=== PATIENT | female | born 1955 | race Caucasian/White ===

== ENCOUNTER 2018-06-04 12:51 | Day surgery (SDC) | payer OTHER, SELFPAY ==
--- NOTE | 2018-06-04 | PATH_ITS ---
[facility] Accession Number: [id number] . 01 Material submitted: . colon - RECTAL/SIGMOID POLYP . 02 Diagnosis: Rectosigmoid Colon, Polyp, Biopsy: Tubular adenoma. [facility]/06/06/2018 . 02 Electronically signed: . Ave Haddad MD, Pathologist NPI- [id number] . 01 Gross description: . RECTAL/SIGMOID POLYP: Received in formalin is 1 fragment(s) of roman, soft tissue measuring 0.3 x 0.3 x 0.2 cm which is entirely submitted and submitted entirely in 1 cassette(s) /DMC /DMC . 02 Pathologist provided ICD-10: D12.7 . 02 CPT . 187322 Performed at: 01 [facility] [address] [id number] MD Aron Mata MD Phone: [phone] Performed at: 02 [facility] [address] [place], [place] [id number] MD Ave Haddad MD Phone: [phone]
[2018-06-04 13:54] VITALS: BMI 21.1
[2018-06-04 13:58] VITALS: BP 170/90; PULSE 53; RESP 12; TEMP 36.6; O2SAT 100
--- NOTE | 2018-06-04 14:06 | PM.HP.1 ---
History of Present Illness Date Patient Seen: 06/04/18 Chief complaint: [id number] Narrative: 63-year-old female here for colon polyp surveillance. Last colonoscopy performed approximately 2012. Prior report not available. Patient currently has no active GI issues Patient History Social History household members: none Family & Social History Social History: household members none Meds Home Medications Medication Instructions Recorded Confirmed Type lisinopril [Prinivil] 20 mg PO BID #0 01/25/11 06/04/18 History potassium chloride 10 meq PO DAILY #0 01/25/11 06/04/18 History carvedilol 3.125 mg PO BID 06/04/18 06/04/18 History chlorthalidone 25 mg PO DAILY 06/04/18 06/04/18 History sertraline 50 mg PO DAILY 06/04/18 06/04/18 History Allergies Allergy/AdvReac Type Severity Reaction Status Date / Time No Known Drug Allergies Allergy Verified 06/04/18 13:51 Exam Vital Signs (past 8 hours): - 06/04/18 13:58 Temperature 97.8 F Pulse Rate 53 L Respiratory Rate 12 Blood Pressure 170/90 H Pulse Oximetry 100 Oxygen Delivery Method Room Air Narrative Exam Narrative: General: Patient is well developed, not in apparent distress Cardiovascular: Regular rhythm, bradycardic, no murmurs, rubs, or gallops; no evidence of edema; no palpable abdominal aortic aneurysm Gastrointestinal: Normoactive bowel sounds, soft, nontender, nondistended, no rebound tenderness, no hepatosplenomegaly, no evidence of hernia Assessment & Plan Assessment & Plan narrative: 63-year-old female here for colon polyp surveillance. Regarding the procedure(s), the risks and potential complications, benefits, and alternatives (including not doing the procedure) were discussed with the patient. The risks include but are not limited to bleeding, splenic injury, infection, perforation which may require surgical intervention, missed lesions, and adverse reactions to sedative medicines. After a question and answer period, the patient agreed to proceed with the procedure(s) and gives informed consent.
[2018-06-04] MEDS: SODIUM CHLORIDE 0.9% 1,000 ML 70 ML IV (14:16)
[2018-06-04] MEDS: MIDAZOLAM 5 MG/5 ML VIAL IV ×2 (14:37→14:41)
[2018-06-04] MEDS: fentaNYL 250 MCG/5 ML INJ IV (14:37)
[2018-06-04 14:55] VITALS: BP 113/74; PULSE 57; RESP 16; TEMP 36.9; O2SAT 97
--- NOTE | 2018-06-04 14:55 | PM.OP.ENDO ---
Operative Date/Time/Diagnoses Date of procedure: 06/04/18 Procedure Notes Procedure in detail: Surgeon: Sebas Candelario MD Procedure: Colonoscopy with polypectomy Preoperative diagnosis: Colon polyp surveillance Postoperative diagnosis: Rectosigmoid polyp status post polypectomy, grade 1 internal hemorrhoids Medications: Conscious sedation using 6 mg IV of Midazolam and 200 mcg IV of Fentanyl Preanesthesia Assessment An H and P was performed/updated and the Px?s ASA class is 2. The procedure was discussed in detail with the patient. The potential risks and complications including infection, bleeding, missed lesions, perforation, need for surgery in case of perforation, prolonged hospital stay, and were explained. A brief question and answer period was allotted and once all questions were answered, informed consent was obtained. The patient was brought back to the procedure room and placed on standard monitoring. The patient?s vital signs were monitored continuously throughout the entire procedure. Prior to starting, a timeout was performed to confirm the patient?s identity, allergies, medications, and procedure. Procedure in detail The patient was placed in left lateral decubitus position and once adequate sedation was obtained a CAROLINA was performed. The digital rectal examination did not reveal any palpable lesions. The tip of the colonoscope was placed in the anal canal and advanced without difficulty all the way to the cecum which was identified by the appendiceal orifice and the ileocecal valve. The left colon was noted to be very tortuous. Careful examination of all sinclair of the colon was performed with irrigation of any residual stool. In the rectosigmoid colon, there was a 3 mm sessile polyp which was removed by means of cold Jumbo forceps. Resection and retrieval were complete with minimal bleeding. Retroflexion was performed in the rectum which revealed grade 1 internal hemorrhoids The patient tolerated the procedure well and will be brought back to the recovery area to be discharged once criteria are met. The prep was judged to be good and adequate to identify polyps less than 5 mm. The withdrawal time was 8 minutes. The total physician intraservice time was 20 minutes. Complications There were no complications and estimated blood loss was minimal. Recommendations: Resume previous diet Continue outPx medications Follow up pathology results Repeat colonoscopy in 5 years If you have any trouble with your hemorrhoids, feel free to call our office to make an appointment so you can be evaluated to see if you would be a good candidate for hemorrhoid banding An emergency contact number was given to the patient for any complications related to the procedure
[2018-06-04 15:00] VITALS: BP 110/69; PULSE 69; RESP 17; O2SAT 96
--- NOTE | 2018-06-04 15:00 | PM.DS.1 ---
History of Present Illness Chief complaint: [id number] Narrative: 63-year-old female here for colon polyp surveillance. Last colonoscopy performed approximately 2012. Prior report not available. Patient currently has no active GI issues Discharge Providers Discharge Date: 06/04/18 Primary care physician: Linden Billy MD Discharge provider: Sebas Candelario MD Exam Vital Signs (past 8 hours): - 06/04/18 13:58 06/04/18 14:55 Temperature 97.8 F 98.4 F Pulse Rate 53 L 57 L Respiratory Rate 12 16 Blood Pressure 170/90 H 113/74 Pulse Oximetry 100 97 Oxygen Delivery Method Room Air Narrative Exam Narrative: General: Patient is well developed, not in apparent distress Cardiovascular: Regular rhythm, bradycardic, no murmurs, rubs, or gallops; no evidence of edema; no palpable abdominal aortic aneurysm Gastrointestinal: Normoactive bowel sounds, soft, nontender, nondistended, no rebound tenderness, no hepatosplenomegaly, no evidence of hernia Discharge Plan Discharge Plan Patient Disposition: Home Discharge Med Rec/Prescriptions Prescriptions: Continued lisinopril [Prinivil] 20 MG tablet 20 mg PO BID Qty: 0 RF: 0 potassium chloride 10 mEq Tablet Extended Release 10 meq PO DAILY Qty: 0 RF: 0 chlorthalidone 25 mg Tablet 25 mg PO DAILY RF: 0 carvedilol 3.125 mg Tablet 3.125 mg PO BID RF: 0 sertraline 50 mg Tablet 50 mg PO DAILY RF: 0 Follow up/Referrals: Linden Billy MD [Primary Care Provider] - Discharge Orders: Discharge (Order); Ordered 06/04/18 Ordered By: Sebas Candelario Provider Discharge Instructions Diet: Diet as Tolerated Visit Report/Discharge Packet Stand Alone Forms: Colonoscopy Result: Med [facility] Discharge Data Primary Care Provider: Linden Billy V Attending Provider: Sebas Candelario
[2018-06-04 15:32] VITALS: BP 140/70; PULSE 53; RESP 16; TEMP 37
== END 2018-06-04 15:47 | disposition home or self-care (01) ==
PROVIDERS: PCP Internal Medicine; Visit Provider Internal Medicine Gastroenterology
PROC: 0DJD8ZZ Inspection of Lower Intestinal Tract, Via Natural or Artificial Opening Endoscopic (ICD-10-PCS; CPT 45378; principal; 2018-06-04 14:30)
DX: Z86.010 Personal history of colon polyps (principal); K64.0 First degree hemorrhoids; D12.7 Benign neoplasm of rectosigmoid junction
CPT/HCPCS: 45380; J2250; J3010

== ENCOUNTER → 2019-09-24 11:34 | Outpatient (CLI) | payer MEDICARE, OTHER, SELFPAY ==
--- NOTE | 2019-09-24 | DI.MG.S_ITS ---
BILATERAL DIGITAL SCREENING MAMMOGRAM 3D/2D WITH CAD: 09/24/2019 CLINICAL: Routine screening. Comparison is made to exams dated: 02/02/2017 mammogram, 05/13/2014 mammogram, and 12/08/2012 mammogram - [facility]. There are scattered fibroglandular elements in both breasts. Current study was also evaluated with a Computer Aided Detection (CAD) system. No significant masses, calcifications, or other findings are seen in either breast. There has been no significant interval change. IMPRESSION: NEGATIVE There is no mammographic evidence of malignancy. A 1 year screening mammogram is recommended. This exam was interpreted at Station ID: [id number]. NOTE: For mammograms, a report in lay terms will be sent to the patient. Approximately 15% of breast malignancies will not be visualized mammographically. In the management of a palpable breast mass, a negative mammogram must not discourage biopsy of a clinically suspicious lesion. Electronically Signed By: Pop Esparza M.D., jr/dianne:09/24/2019 13:18:00 letter sent: Normal Exam ACR BI-RADS Category 1: Negative 3341F
[2019-09-24 13:41] LABS: Aspartate Aminotransferase 26 IU/L (14-36); Blood Urea Nitrogen 19 mg/dL (7-17); Calcium 9.7 mg/dL (8.4-10.2); Carbon Dioxide 28 mmol/L (22-32); Chloride 97 mmol/L (98-107); Cholesterol 254 mg/dL (140-199); Estimated Glomerular Filt Rate 55.6 mL/min (>60); Glucose 84 mg/dL (80-110); HDL Cholesterol 68 mg/dL (40-60); HEMOLYSIS < 15 (0-50); LDL Cholesterol Calculated 153 mg/dL (<100); Sodium 133 mmol/L (137-145); Triglycerides 164 mg/dL (35-150)
== END ==
PROVIDERS: PCP Internal Medicine; Referring Provider Internal Medicine; Visit Provider Internal Medicine
DX: Z12.31 Encounter for screening mammogram for malignant neoplasm of breast (principal); I10 Essential (primary) hypertension; E78.2 Mixed hyperlipidemia
CPT/HCPCS: 36415; 77063; 77067; 80048; 80061; 84450

== ENCOUNTER 2020-07-01 00:28 | Emergency (ER) | payer MEDICARE, OTHER, SELFPAY ==
[2020-07-01] VITALS (10 sets, daily range): BP systolic 130–206; BP diastolic 73–102; PULSE 52–60; RESP 18; TEMP 37; O2SAT 95–98; BMI 22.6
--- NOTE | 2020-07-01 00:33 | DI.CT.S_ITS ---
PROCEDURE: CT KIDNEY URETER BLADDER (KUB) INDICATIONS: left flank pain TECHNIQUE: Noncontrast 5 mm thick sections acquired from the diaphragms to the symphysis. 5 mm thick coronal and sagittal reformats were then performed. For radiation dose reduction, the following was used: automated exposure control, adjustment of mA and/or kV according to patient size. COMPARISON: None. FINDINGS: Image quality: Excellent. Lung bases: Mild bibasilar atelectasis. Heart size is normal. There is a small hiatal hernia. Urinary system: Both kidneys are normal in size. No kidney stones. No hydronephrosis or perinephric fat stranding. Both ureters appear non-dilated throughout their expected courses. Bladder wall thickness is normal; no calcified bladder stones. Other solid organs: Liver is normal in size. Gallbladder is normal. Pancreas is normal in contours. Spleen is normal in size. No adrenal nodules. Mild adrenal thickening. Peritoneum and bowel: Unenhanced bowel loops demonstrate normal wall thickness and caliber. Normal appendix. There is a moderate amount of stool in colon. No free fluid or air. Nodes and vessels: No retroperitoneal or mesenteric adenopathy by size criteria. Aorta and inferior vena cava are normal in caliber. Abdominal wall: No ventral hernias. Pelvis: Uterus is normal. Ovaries are not well seen. No free pelvic fluid. No inguinal hernias or adenopathy. Bones: No suspicious bony lesions. No vertebral body compression fractures. Degenerative changes in the lower lumbar spine. IMPRESSION: 1. No renal stone or hydronephrosis. No significant discrepancy with the hotel night auditor radiology preliminary report. Dictated by: Morgan Schaffer M.D. on 07/01/2020 at 8:10 Approved by: Morgan Schaffer M.D. on 07/01/2020 at 8:14
--- NOTE | 2020-07-01 00:35 | ED_ITS ---
HPI - General Adult General Chief complaint: Back Pain/Injury Stated complaint: Lower Back Pain Time Seen by Provider: 07/01/20 00:32 History of Present Illness HPI narrative: 65-year-old woman with a history of high blood pressure presents via medics with severe left flank pain. She notes that her symptoms started today they have been waxing and waning ranging from a dull continuous ache to severe sharp pain associated with nausea and diaphoresis. She describes no dysuria and no hematuria but does note passing some sand/grainy material in her urine earlier today. No constipation or fevers. No chest pain, palpitations, dyspnea. No lower extremity edema. No recent trauma and no history of similar findings Related Data Home Medications Medication Instructions Recorded Confirmed lisinopril [Prinivil] 20 mg PO BID #0 01/25/11 06/04/18 potassium chloride 10 meq PO DAILY #0 01/25/11 06/04/18 carvedilol 3.125 mg PO BID 06/04/18 06/04/18 chlorthalidone 25 mg PO DAILY 06/04/18 06/04/18 sertraline 50 mg PO DAILY 06/04/18 06/04/18 Allergies Allergy/AdvReac Type Severity Reaction Status Date / Time No Known Drug Allergies Allergy Verified 06/04/18 13:51 Review of Systems Review of Systems Narrative: Remainder of complete review of systems is otherwise unremarkable except for that included in the HPI. Patient History Medical History Hypertension Social History household members: none Smoking Status: Never smoker Exam Narrative Exam Narrative: General: Healthy appearing, in moderate distress. Able to give a complete and coherent history. Well-nourished well-developed HEENT: Moist mucous membranes, normal sclera with reactive pupils, Respiratory: Lungs are clear to auscultation, no wheezing no rales no rhonchi. Full and symmetrical air movement Cardiac: Regular rate and rhythm no murmurs no bruits Abdomen: Soft, nontender, good bowel tones, left flank pain Skin: Warm and dry, no rashes Neurologic: Grossly neurologically intact with no obvious asymmetries or abnormalities Extremities: No trauma, well perfused Psych: Cooperative, appropriate insight and affect Initial Vital Signs Initial Vital Signs: Vital Signs Temperature 98.6 F 07/01/20 00:35 Pulse Rate 60 07/01/20 00:35 Respiratory Rate 18 07/01/20 00:35 Blood Pressure 206/102 H 07/01/20 00:35 Pulse Oximetry 98 07/01/20 00:35 Course Orders Ordered: ED Orders 07/01/20 00:33 CT kidney ureter bladder (KUB) Stat 07/01/20 00:50 Complete Blood Count AUTO DIFF Stat Comprehensive Metabolic Panel Stat Hydromorphone HCl (Hydromorphone 0.5 Mg Inj) 0.5 mg IV Q15MIN PRN PRN Reason: Pain, Last Admin: 07/01/20 00:44 Dose: 0.5 mg Documented by: SHARRI Discontinued Medications Sodium Chloride (Normal Saline 0.9%) 1,000 mls @ 1,000 mls/hr IV BOLUS ONE Stop: 07/01/20 01:31 Last Infusion: 07/01/20 02:39 Dose: 0 mls/hr Documented by: Admin: 07/01/20 00:45 Dose: 1,000 mls/hr Documented by: SHARRI Ketorolac Tromethamine (Ketorolac 30 Mg/Ml Vial) 15 mg IV NOW ONE Stop: 07/01/20 00:33 Last Admin: 07/01/20 00:44 Dose: 15 mg Documented by: SHARRI Ondansetron HCl (Ondansetron 4 Mg/2 Ml Inj) 4 mg IV NOW ONE Stop: 07/01/20 00:33 Last Admin: 07/01/20 00:45 Dose: 4 mg Documented by: SHARRI Oxycodone/Acetaminophen (Oxycodone/Acetaminophen 5/325 Tablet) 1 tab PO NOW ONE Stop: 07/01/20 02:49 Oxycodone/Acetaminophen (Oxycodone/Apap 5/325 Prepack) 1 bottle MISC SEEINSTR ONE Stop: 07/01/20 02:49 Potassium Chloride (Potassium Chloride 20 Meq Tab) 20 meq PO NOW ONE Stop: 07/01/20 01:38 Last Admin: 07/01/20 01:44 Dose: 20 meq Documented by: SHARRI Vital Signs Vital signs: Vital Signs - 8 hr 07/01/20 00:35 07/01/20 00:59 07/01/20 01:00 Temperature 98.6 F Pulse Rate 60 52 L 52 L Respiratory Rate 18 Blood Pressure 206/102 H 158/82 H Pulse Oximetry 98 98 97 07/01/20 01:30 07/01/20 01:31 07/01/20 01:45 Temperature Pulse Rate 54 L 54 L 59 L Respiratory Rate Blood Pressure 130/73 Pulse Oximetry 95 96 98 07/01/20 02:02 Temperature Pulse Rate Respiratory Rate Blood Pressure 137/80 Pulse Oximetry Medical Decision Making Medical Records Medical records reviewed: Yes I reviewed the patient's medical records. Lab Data Lab results reviewed: Yes I reviewed the patient's lab results. Result diagrams: 07/01/20 00:50 07/01/20 00:50 Labs: Lab Results 07/01/20 07/01/20 Range/Units 00:50 00:50 WBC 10.8 (4.5-11.0) X10^3/uL RBC 4.38 (4.0-5.2) X10^6/uL Hgb 14.0 (12.0-16.0) g/dL Hct 40.6 (36-46) % MCV 92.8 (80-100) fL MCH 32.0 (26-34) PG MCHC 34.4 (30-36) % RDW 13.2 (11.6-14.8) % Plt Count 328 (150-400) X10^3/uL Neut % (Auto) 67.5 (50-75) % Lymph % (Auto) 21.2 L (25-40) % [place] % (Auto) 9.8 (3-14) % Eos % (Auto) 1.0 L (2-4) % Baso % (Auto) 0.5 (0-2) % Neut # (Auto) 7300 H (2740-3078) /uL Lymph # (Auto) 2300 (7719-3192) /uL [place] # (Auto) 1100 H (0-900) /uL Eos # (Auto) 100 (0-450) /uL Baso # (Auto) 100 (0-100) /uL Sodium 136 L (137-145) mmol/L Potassium 3.3 L (3.4-5.1) mmol/L Chloride 98 (98-107) mmol/L Carbon Dioxide 29 (22-32) mmol/L BUN 29 H (7-17) mg/dL Creatinine 1.06 H (0.52-1.04) mg/dL Estimated GFR 51.9 L (>60) mL/min BUN/Creatinine Ratio 27.4 H (6-22) Glucose 102 (80-110) mg/dL Calcium 9.2 (8.4-10.2) mg/dL Total Bilirubin 0.4 (0.2-1.3) mg/dL AST 29 (14-36) IU/L ALT 17 (<35) IU/L Alkaline Phosphatase 50 (38-126) U/L Total Protein 7.3 (6.3-8.2) g/dL Albumin 4.3 (3.5-5.0) g/dL Globulin 3.0 (1.7-4.1) g/dL Albumin/Globulin Ratio 1.4 (1.0-2.8) Urine Dip Bedside Urine Glucose Negative Bedside Urine Bilirubin - Negative Bedside Urine Ketone +/- 5 Urine Specific [place] 1.025 Bedside Urine Occult Blood +/- Bedside Urine Protein - Negative Bedside Urine Urobilinogen - Negative Bedside Urine Nitrite - Negative Bedside Urine Leukocytes - Negative Esterase Point of care testing: Urine Dip Bedside Urine Glucose Negative Bedside Urine Bilirubin - Negative Bedside Urine Ketone +/- 5 Urine Specific [place] 1.025 Bedside Urine Occult Blood +/- Bedside Urine Protein - Negative Bedside Urine Urobilinogen - Negative Bedside Urine Nitrite - Negative Bedside Urine Leukocytes - Negative Esterase Imaging Data CT scan - abdomen/pelvis: Radiologist's Impression: No definite ureteral stones or hydronephrosis, normal appendix, no bowel obstruction no compression fracture no diverticulitis Dr Betito MD [facility] Narrative Medical decision making narrative: 65-year-old woman presents with fairly classic history for renal colic and passing Mirna debris in her urine earlier today. CT scan does not show obvious stone, hydronephrosis, intra-abdominal abscess or infection, no bowel obstruction and no other explanation for the classic rather colicky pain she is experiencing. Her pain was controlled with Toradol and Dilaudid initially and can continued to be tolerable with oral Percocet. Despite the negative CT findings with the history and the description of the seen the debris in her urine of most likely explanation remains renal colic. She is safe for home discharge Discharge Plan Departure Patient Disposition: Home Clinical Impression: Hypokalemia, Renal colic Instructions: Kidney Stones -- Adult Activity Restrictions/Additional Instructions: Thank you for coming in today With the colicky severe flank pain that your having, it looks and behaves absolutely like a kidney stone. With the sand like debris you noticed in your urine earlier strongly suspicious for renal colic. The CT scan did not show an obvious large kidney stone and it did not show evidence of appendicitis, diverticulitis, compression fractures or other diagnoses to explain symptoms your currently having. At this point it is okay to cover up the pain and presumed that this is renal colic. Using 400 mg of ibuprofen (2 pypw-nqa-vlwifsd pills) and 1 Tylenol every 6 hours can be very helpful in controlling pain. For severe pain using 2 ibuprofen and 1 Percocet can be helpful. Typically as your passing the sandlike debris will continue to have pain and will have a deep discomfort feeling but not this severe pain that your having today for another couple of days. Please do schedule follow-up appointment with her primary care physician to make sure that you are feeling 100% back to normal. If you develop fevers, hematuria or increasing difficulty or inability to go to the bathroom you do need to return to the emergency department for further evaluation Prescriptions: No Action lisinopril [Prinivil] 20 MG tablet 20 mg PO BID Qty: 0 RF: 0 potassium chloride 10 mEq Tablet Extended Release 10 meq PO DAILY Qty: 0 RF: 0 chlorthalidone 25 mg Tablet 25 mg PO DAILY RF: 0 carvedilol 3.125 mg Tablet 3.125 mg PO BID RF: 0 sertraline 50 mg Tablet 50 mg PO DAILY RF: 0 Referrals: Linden Billy MD [Primary Care Provider] -
[2020-07-01] MEDS: KETOROLAC 30 MG/ML VIAL 15 MG IV (00:44)
[2020-07-01] MEDS: HYDROMORPHONE 0.5 MG INJ IV (00:44)
[2020-07-01] MEDS: ONDANSETRON 4 MG/2 ML INJ IV (00:45)
[2020-07-01] MEDS: SODIUM CHLORIDE 0.9% 1,000 ML 1000 ML IV (00:45)
[2020-07-01 00:57] LABS: Add Manual Diff / Slide Review NO; Basophils Absolute Auto 100 /uL (0-100); Basophils Percent Auto 0.5 % (0-2); Eosinophils Absolute Auto 100 /uL (0-450); Hematocrit 40.6 % (36-46); Lymphocytes Absolute Auto 2300 /uL (1100-4500); Lymphocytes Percent Auto 21.2 % (25-40); Mean Corpuscular HGB Conc 34.4 % (30-36); Mean Corpuscular Volume 92.8 fL (80-100); Monocytes Absolute Auto 1100 /uL (0-900); Monocytes Percent Auto 9.8 % (3-14); Neutrophils Absolute Auto 7300 /uL (1500-7000); Neutrophils Percent Auto 67.5 % (50-75); Platelet Count 328 X10^3/uL (150-400); Red Blood Cell Count 4.38 X10^6/uL (4.0-5.2); Red Cell Distribution Width 13.2 % (11.6-14.8); White Blood Cell Count 10.8 X10^3/uL (4.5-11.0)
[2020-07-01 01:08] LABS: Alanine Aminotransferase 17 IU/L (<35); Albumin 4.3 g/dL (3.5-5.0); Albumin Globulin Ratio 1.4 (1.0-2.8); Alkaline Phosphatase 50 U/L (38-126); Aspartate Aminotransferase 29 IU/L (14-36); BUN Creatinine Ratio 27.4 (6-22); Bilirubin Total 0.4 mg/dL (0.2-1.3); Blood Urea Nitrogen 29 mg/dL (7-17); Calcium 9.2 mg/dL (8.4-10.2); Carbon Dioxide 29 mmol/L (22-32); Chloride 98 mmol/L (98-107); Estimated Glomerular Filt Rate 51.9 mL/min (>60); Glucose 102 mg/dL (80-110); HEMOLYSIS < 15 (0-50); Potassium 3.3 mmol/L (3.4-5.1); Sodium 136 mmol/L (137-145); Total Protein 7.3 g/dL (6.3-8.2)
[2020-07-01] MEDS: POTASSIUM CHLORIDE 20 MEQ TAB PO (01:44)
[2020-07-01] MEDS: OXYCODONE/APAP 5/325 PREPACK 1 BOTTLE MISC (03:14)
[2020-07-01] MEDS: OXYCODONE/ACETAMINOPHEN 5/325 TABLET 1 TAB PO (03:14)
--- NOTE | 2020-07-01 05:34 | PC.NURSE ---
She verbalized understanding of d/c instructions.Smiling and thankfull.Gait steady.
== END 2020-07-01 05:10 | disposition home or self-care (01) ==
PROVIDERS: Emergency Provider Emergency Medicine; PCP Internal Medicine
DX: E87.6 Hypokalemia (principal); N23 Unspecified renal colic; R11.0 Nausea
CPT/HCPCS: 36415; 74176; 80053; 81003; 85025; 96361; 96374; 96375; 99284; J1170; J1885; J2405

== ENCOUNTER → 2020-07-11 18:49 | Outpatient (ROUT) | payer MEDICARE, OTHER, SELFPAY ==
[2020-07-11 19:32] LABS: BUN Creatinine Ratio 20.8 (6-22); Blood Urea Nitrogen 20 mg/dL (7-17); Calcium 9.8 mg/dL (8.4-10.2); Carbon Dioxide 27 mmol/L (22-32); Chloride 99 mmol/L (98-107); Estimated Glomerular Filt Rate 58.1 mL/min (>60); Glucose 96 mg/dL (80-110); HEMOLYSIS < 15 (0-50); Potassium 4.3 mmol/L (3.4-5.1); Sodium 135 mmol/L (137-145)
== END ==
PROVIDERS: PCP Internal Medicine; Visit Provider Internal Medicine
DX: E87.6 Hypokalemia (principal)
CPT/HCPCS: 80048

== ENCOUNTER → 2021-10-02 09:43 | Outpatient (CLI) | payer MEDICARE, OTHER, SELFPAY ==
[2021-10-02 11:09] LABS: Hematocrit 40.2 % (36-46); Mean Corpuscular HGB Conc 34.9 % (30-36); Mean Corpuscular Hemoglobin 32.1 PG (26-34); Mean Corpuscular Volume 92.1 fL (80-100); Platelet Count 279 X10^3/uL (150-400); Red Blood Cell Count 4.36 X10^6/uL (4.0-5.2); Red Cell Distribution Width 13.4 % (11.6-14.8); White Blood Cell Count 8.2 X10^3/uL (4.5-11.0)
[2021-10-02 11:53] LABS: Alanine Aminotransferase 20 IU/L (<35); Albumin 4.4 g/dL (3.5-5.0); Albumin Globulin Ratio 1.3 (1.0-2.8); Alkaline Phosphatase 50 U/L (38-126); Aspartate Aminotransferase 31 IU/L (14-36); BUN Creatinine Ratio 18.2 (6-22); Bilirubin Total 0.5 mg/dL (0.2-1.3); Blood Urea Nitrogen 20 mg/dL (7-17); Calcium 9.4 mg/dL (8.4-10.2); Carbon Dioxide 30 mmol/L (22-32); Chloride 99 mmol/L (98-107); Cholesterol 157 mg/dL (140-199); Estimated Glomerular Filt Rate 55 mL/min (>60); Globulin 3.3 g/dL (1.7-4.1); Glucose 94 mg/dL (80-110); HDL Cholesterol 70 mg/dL (40-60); HEMOLYSIS < 15 (0-50); LDL Cholesterol Calculated 72 mg/dL (<100); Potassium 3.6 mmol/L (3.4-5.1); Sodium 136 mmol/L (137-145); Total Protein 7.7 g/dL (6.3-8.2); Triglycerides 76 mg/dL (35-150)
[2021-10-02 12:21] LABS: TSH w/ Reflex to FT4 2.36 uIU/mL (0.47-4.68)
[2021-10-02 12:37] LABS: Vitamin B12 250 pg/mL (239-931)
== END ==
PROVIDERS: PCP Internal Medicine; Referring Provider Internal Medicine; Visit Provider Internal Medicine
DX: E78.2 Mixed hyperlipidemia (principal); I10 Essential (primary) hypertension; E53.8 Deficiency of other specified B group vitamins
CPT/HCPCS: 36415; 80053; 80061; 82607; 84443; 85027

== ENCOUNTER → 2022-09-27 11:17 | Outpatient (CLI) | payer MEDICARE, OTHER, SELFPAY ==
[2022-09-27 13:10] LABS: Hematocrit 40.8 % (36-46); Hemoglobin 13.9 g/dL (12.0-16.0); Mean Corpuscular Hemoglobin 31.4 PG (26-34); Mean Corpuscular Volume 92.2 fL (80-100); Platelet Count 307 X10^3/uL (150-400); Red Blood Cell Count 4.42 X10^6/uL (4.0-5.2); Red Cell Distribution Width 12.8 % (11.6-14.8); White Blood Cell Count 15.1 X10^3/uL (4.5-11.0)
[2022-09-27 13:40] LABS: Alanine Aminotransferase 18 IU/L (<35); Albumin 4.5 g/dL (3.5-5.0); Albumin Globulin Ratio 1.6 (1.0-2.8); Alkaline Phosphatase 60 U/L (38-126); Aspartate Aminotransferase 31 IU/L (14-36); Bilirubin Total 0.7 mg/dL (0.2-1.3); Blood Urea Nitrogen 15 mg/dL (7-17); Calcium 9.1 mg/dL (8.4-10.2); Carbon Dioxide 26 mmol/L (22-32); Chloride 90 mmol/L (98-107); Cholesterol 173 mg/dL (140-199); Estimated Glomerular Filt Rate > 60 mL/min (>60); Globulin 2.9 g/dL (1.7-4.1); Glucose 96 mg/dL (80-110); HDL Cholesterol 80 mg/dL (40-60); HEMOLYSIS < 15 (0-50); LDL Cholesterol Calculated 72 mg/dL (<100); Potassium 3.8 mmol/L (3.4-5.1); Sodium 127 mmol/L (137-145); Total Protein 7.4 g/dL (6.3-8.2); Triglycerides 105 mg/dL (35-150)
[2022-09-27 14:09] LABS: TSH w/ Reflex to FT4 1.93 uIU/mL (0.47-4.68)
== END ==
PROVIDERS: PCP Internal Medicine; Referring Provider Internal Medicine; Visit Provider Internal Medicine
DX: E78.2 Mixed hyperlipidemia (principal); I10 Essential (primary) hypertension
CPT/HCPCS: 36415; 80053; 80061; 84443; 85027

== ENCOUNTER → 2022-10-04 14:59 | Outpatient (CLI) | payer MEDICARE, OTHER, SELFPAY ==
[2022-10-04 15:45] LABS: Add Manual Diff / Slide Review NO; Basophils Absolute Auto 100 /uL (0-100); Basophils Percent Auto 0.8 % (0-2); Eosinophils Absolute Auto 200 /uL (0-450); Hematocrit 41.5 % (36-46); Hemoglobin 14.1 g/dL (12.0-16.0); Lymphocytes Absolute Auto 3000 /uL (1100-4500); Lymphocytes Percent Auto 36.9 % (25-40); Mean Corpuscular Hemoglobin 31.4 PG (26-34); Mean Corpuscular Volume 92.4 fL (80-100); Monocytes Absolute Auto 800 /uL (0-900); Monocytes Percent Auto 9.5 % (3-14); Neutrophils Absolute Auto 4100 /uL (1500-7000); Neutrophils Percent Auto 50.8 % (50-75); Platelet Count 312 X10^3/uL (150-400); Red Blood Cell Count 4.49 X10^6/uL (4.0-5.2); Red Cell Distribution Width 12.9 % (11.6-14.8); White Blood Cell Count 8.1 X10^3/uL (4.5-11.0)
[2022-10-04 16:49] LABS: BUN Creatinine Ratio 17.2 (6-22); Blood Urea Nitrogen 17 mg/dL (7-17); Calcium 9.6 mg/dL (8.4-10.2); Carbon Dioxide 32 mmol/L (22-32); Chloride 97 mmol/L (98-107); Estimated Glomerular Filt Rate > 60 mL/min (>60); Glucose 82 mg/dL (80-110); HEMOLYSIS < 15 (0-50); Potassium 3.5 mmol/L (3.4-5.1); Sodium 136 mmol/L (137-145)
== END ==
PROVIDERS: PCP Internal Medicine; Referring Provider Internal Medicine; Visit Provider Internal Medicine
DX: D72.829 Elevated white blood cell count, unspecified (principal); E78.2 Mixed hyperlipidemia; I10 Essential (primary) hypertension; E87.1 Hypo-osmolality and hyponatremia
CPT/HCPCS: 36415; 80048; 85025

== ENCOUNTER → 2023-09-27 13:48 | Outpatient (CLI) | payer MEDICARE, OTHER, SELFPAY ==
--- NOTE | 2023-09-27 13:49 | DI.RAD.S_ITS ---
PROCEDURE: XR DEXA AXIAL SKELETON INDICATIONS: postmenopausal COMPARISON: 05/13/2014. FINDINGS: Lumbar Spine: Bone mineral density 0.994 g/cm2, T score -0.5, previously 0.4. Left Hip: Bone mineral density 0.997 g/cm2, T score 0.5, previously 1.3. Left Femoral Neck: Bone mineral density 0.832 g/cm2, T score -0.2, previously 1.0. Right Hip: Bone mineral density 1.001 g/cm2, T score 0.5, previously 1.5. Right Femoral Neck: Bone mineral density 0.826 g/cm2, T score -0.2, previously 0.9. Fracture Risk Calculation (when applicable): Not applicable due to normal bone mineral density. (T score greater or equal to -1.0 to: NORMAL) (T score from -1.1 to -2.4: OSTEOPENIA) (T score less than or equal to -2.5: OSTEOPOROSIS) IMPRESSION: Normal bone mineral density. Follow-up guidelines as follows: Osteoporosis: Consider a repeat DEXA and Vertebral Fracture Assessment (VFA) exam in 2 years or sooner if medically necessary, to reassess this patient's status. Osteopenia: Consider a repeat DEXA in 2-3 years to reassess this patient's status, or if there is a new clinical indication. Normal: Consider a repeat DEXA in 5 years or sooner, or if there is a new clinical indication. All treatment decisions require clinical judgment and consideration of individual patient factors, including patient preferences, comorbidities, previous drug use, risk factors not captured in the FRAX model (e.g., frailty, falls, vitamin D deficiency, increased bone turnover, interval significant decline in bone density ) and possible under- or over-estimation of fracture risk by FRAX. In addition, the NOF Guide recommends that FDA-approved medical therapies be considered in postmenopausal women and men age >= 50 years with a: * Hip or vertebral (clinical or morphometric) fracture * T-score of <=-2.5 at the spine or hip * Ten-year fracture probability by FRAX of >= 3% for hip fracture or >=20% for major osteoporotic fracture. People with diagnosed cases of osteoporosis or at high risk for fracture should have regular bone mineral density tests. For patients eligible for Medicare, routine testing is allowed once every 2 years. The testing frequency can be increased to one year for patients who have rapidly progressing disease, those who are receiving or discontinuing medical therapy to restore bone mass, or have additional risk factors. Dictated by: Axel Gonzalez M.D. on 09/27/2023 at 18:52 Approved by: Axel Gonzalez M.D. on 09/27/2023 at 18:54
--- NOTE | 2023-09-27 13:50 | DI.MG.S_ITS ---
BILATERAL DIGITAL SCREENING MAMMOGRAM 3D/2D WITH CAD: 09/27/2023 CLINICAL: Routine screening. Comparison is made to exams dated: 09/24/2019 mammogram, 02/02/2017 mammogram, and 05/13/2014 mammogram - [facility]. There are scattered areas of fibroglandular density in both breasts (category b / 25%-50% glandular tissue). Current study was also evaluated with a Computer Aided Detection (CAD) system. No significant masses, calcifications, or other findings are seen in either breast. There has been no significant interval change. IMPRESSION: NEGATIVE There is no mammographic evidence of malignancy. A 1 year screening mammogram is recommended. Based on the Tyrer Cuzick model (a risk assessment model) the patient's lifetime risk is 4.5% and her 10 year risk is 2.6%. According to the ACR, ACS, and NCCN guidelines, an annual breast MRI exam along with mammogram is recommended if the patient's lifetime risk is 20% or greater. This exam was interpreted at Station ID: [id number]. NOTE: For mammograms, a report in lay terms will be sent to the patient. Approximately 15% of breast malignancies will not be visualized mammographically. In the management of a palpable breast mass, a negative mammogram must not discourage biopsy of a clinically suspicious lesion. Electronically Signed By: Vahid higgins/dianne:09/30/2023 07:20:22 letter sent: Normal Exam ACR BI-RADS Category 1: Negative 3341F
== END ==
PROVIDERS: PCP Internal Medicine; Referring Provider Internal Medicine; Visit Provider Internal Medicine
DX: Z78.0 Asymptomatic menopausal state (principal); Z12.31 Encounter for screening mammogram for malignant neoplasm of breast; R92.323 Mammographic fibroglandular density, bilateral breasts
CPT/HCPCS: 77063; 77067; 77080

== ENCOUNTER → 2023-10-01 10:41 | Outpatient (CLI) | payer MEDICARE, OTHER, SELFPAY ==
[2023-10-01 12:13] LABS: Aspartate Aminotransferase 39 IU/L (14-36); BUN Creatinine Ratio 17.8 (6-22); Blood Urea Nitrogen 18 mg/dL (7-17); Calcium 9.4 mg/dL (8.4-10.2); Carbon Dioxide 28 mmol/L (22-32); Chloride 103 mmol/L (98-107); Cholesterol 178 mg/dL (140-199); Estimated Glomerular Filt Rate > 60 mL/min (>60); Glucose 101 mg/dL (80-110); HDL Cholesterol 70 mg/dL (40-60); HEMOLYSIS < 15 (0-50); LDL Cholesterol Calculated 82 mg/dL (<100); Potassium 4.2 mmol/L (3.4-5.1); Sodium 138 mmol/L (137-145); Triglycerides 130 mg/dL (35-150)
[2023-10-01 13:01] LABS: Vitamin B12 249 pg/mL (239-931)
== END ==
PROVIDERS: PCP Internal Medicine; Referring Provider Internal Medicine; Visit Provider Internal Medicine
DX: E78.2 Mixed hyperlipidemia (principal); I10 Essential (primary) hypertension; E53.8 Deficiency of other specified B group vitamins
CPT/HCPCS: 36415; 80048; 80061; 82607; 84450

== ENCOUNTER 2024-01-06 08:22 | Day surgery (SDC) | payer MEDICARE, OTHER, SELFPAY ==
[2024-01-06 08:56] VITALS: BMI 22.6
--- NOTE | 2024-01-06 09:00 | PM.HP.1 ---
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 household members: none Smoking Status: Former smoker Meds Home Medications and Allergies Home Medications Medication Instructions Recorded Confirmed Type lisinopril 20 mg tablet 20 mg PO BID #180 tabs 11/27/22 01/06/24 Rx carvedilol 6.25 mg tablet 6.25 mg PO BID #180 tabs 02/06/23 01/06/24 Rx chlorthalidone 25 mg tablet 25 mg PO DAILY #90 tabs 02/06/23 01/06/24 Rx rosuvastatin 10 mg tablet 10 mg PO DAILY #90 tabs 02/06/23 01/06/24 Rx potassium chloride 10 mEq 10 meq PO DAILY #90 caps 05/10/23 01/06/24 Rx capsule,extended release Allergies Allergy/AdvReac Type Severity Reaction Status Date / Time No Known Drug Allergies Allergy Verified 10/01/23 09:41 Exam Narrative Exam Narrative: Oropharynx free of lesions Chest clear to auscultation percussion Cardiac exam reveals no S3 or murmur Assessment & Plan Assessment & Plan narrative: History of polyps need for follow-up colonoscopy. Risks, benefits, alternatives have been explained. Time-Based Coding :: [TOTAL MINUTES] spent with patient and on the chart (including review of chart, obtaining history, exam, reviewing outside data, placing orders, documenting exam and treatment plan, and counseling patient) on [DATE].
--- NOTE | 2024-01-06 09:01 | PM.OP.COLON ---
Operative Date/Time/Diagnoses Date of procedure: 01/06/24 Pre-op diagnosis: See indication and findings Procedure & Clinicians Study performed: Colonoscopy Indications: History of polyps Surgeon: Sander Jones Procedure Notes Procedure in detail: After informed consent was obtained the patient was placed in left lateral decubitus position. The video colonoscope was introduced the rectum slowly advanced cecum. Preparation was good. On slow withdrawal mucosa was carefully examined. The scope was removed. The patient tolerated procedure well. Blood loss none Complications none Sedation mac Findings 1. Very tortuous colon 2. Otherwise negative colonoscopy to cecum. Patient should have follow-up colonoscopy in 5 years
[2024-01-06 09:02] VITALS: BP 166/86; PULSE 56; RESP 17; TEMP 36.8; O2SAT 98
[2024-01-06 10:03] VITALS: BP 78/51; PULSE 56; RESP 18; TEMP 36.3
[2024-01-06 10:08] VITALS: BP 94/62; PULSE 60; RESP 18; O2SAT 98
[2024-01-06 10:13] VITALS: BP 104/67; PULSE 56; RESP 16; O2SAT 97
[2024-01-06 10:17] VITALS: BP 105/70; PULSE 55; RESP 16; O2SAT 95
[2024-01-06 10:34] VITALS: BP 120/80
== END 2024-01-06 10:40 | disposition home or self-care (01) ==
PROVIDERS: PCP Internal Medicine; Referring Provider Internal Medicine Gastroenterology; Visit Provider Internal Medicine Gastroenterology
PROC: 0DJD8ZZ Inspection of Lower Intestinal Tract, Via Natural or Artificial Opening Endoscopic (ICD-10-PCS; CPT 45378; principal; 2024-01-06 09:30)
DX: Z12.11 Encounter for screening for malignant neoplasm of colon (principal); Z86.0100 Personal history of colon polyps, unspecified
CPT/HCPCS: G0105; J2704; J3010

== ENCOUNTER → 2024-09-30 11:01 | Outpatient (CLI) | payer MEDICARE, OTHER, SELFPAY ==
[2024-09-30 12:44] LABS: Blood Urea Nitrogen 20 mg/dL (7-17); Calcium 9.7 mg/dL (8.4-10.2); Carbon Dioxide 27 mmol/L (22-32); Chloride 99 mmol/L (98-107); Cholesterol 208 mg/dL (140-199); Estimated Glomerular Filt Rate > 60 mL/min (>60); Glucose 85 mg/dL (70-99); HDL Cholesterol 76 mg/dL (40-60); HEMOLYSIS < 15 (0-50); Potassium 3.2 mmol/L (3.4-5.1); Sodium 138 mmol/L (137-145); Triglycerides 175 mg/dL (35-150)
== END ==
PROVIDERS: PCP Internal Medicine; Referring Provider Internal Medicine; Visit Provider Internal Medicine
DX: I10 Essential (primary) hypertension (principal); E78.2 Mixed hyperlipidemia
CPT/HCPCS: 36415; 80048; 80061; 84450